=== PATIENT | male | born 1940 | race Caucasian/White ===

== ENCOUNTER 2024-10-17 17:20 | Outpatient (REF) | payer MEDICARE, BC, SELFPAY ==
[2024-10-17 17:33] LABS: Appearance Urine Clear (Clear)
== END 2024-10-17 17:21 | disposition home or self-care (01) ==
LOC: NPINS 17:20
PROVIDERS: PCP Family Medicine; Visit Provider Nurse Practitioner Gerontology
DX: R41.82 Altered mental status, unspecified (principal)
CPT/HCPCS: 81001; 81003; 87086